=== PATIENT | male | born 1940 | race Caucasian/White ===

== ENCOUNTER → 2020-09-28 02:15 | Outpatient (CLI) | payer MEDICARE, SELFPAY ==
[2020-09-28 19:19] LABS: SARS-CoV-2 RNA PCR Negative
== END ==
PROVIDERS: PCP Internal Medicine; Visit Provider Specialist
DX: Z01.812 Encounter for preprocedural laboratory examination (principal); Z20.822 Contact with and (suspected) exposure to COVID-19
CPT/HCPCS: C9803; U0003; U0005

== ENCOUNTER 2020-10-01 16:44 | Day surgery (SDC) | payer MEDICARE, SELFPAY ==
[2020-09-30 15:40] VITALS: BMI 26.6
[2020-10-01] VITALS (11 sets, daily range): BP systolic 100–135; BP diastolic 51–108; PULSE 45–60; RESP 8–20; TEMP 36.2–36.6; O2SAT 97–100; BMI 21.4
--- NOTE | ~2020-10-01 | XR_ITS ---
EXAMINATION: XR chest 2V DATE: 10/02/2020 07:29 INDICATION: Weakness TECHNIQUE: frontal and lateral views of the chest were obtained. COMPARISON: Chest radiograph dated 10/01/2020 FINDINGS: The lungs remain clear with no focal airspace opacities, pulmonary edema, pleural effusion or pneumot horax. The cardiomediastinal silhouette is normal. Median sternotomy wires and mediastinal surgical c lips are seen, likely from prior coronary artery bypass grafting. Skin hernan along side a likely re cently placed right pectoral cardiac pacemaker with the tip just from the 2 leads projecting over the expected locations of the right atrium and right ventricle. Left rotator cuff arthropathy. IMPRESSION: 1. No acute cardiopulmonary disease. Reviewed, dictated and finalized at location A.
--- NOTE | ~2020-10-01 | XR_ITS ---
EXAMINATION: XR chest 1V portable DATE: 10/01/2020 15:49 INDICATION: Pacer placement. TECHNIQUE: A single frontal view of the chest was obtained. COMPARISON: None. FINDINGS: A calcified left lung nodule is consistent with old granulomatous disease. No pleural effus ion or pneumothorax. The heart size is normal. Median sternotomy wires and mediastinal surgical clips are seen, likely from prior coronary artery bypass grafting. There is a right chest wall pacer with leads in the right atrium and right ventricle. IMPRESSION: 1. No acute cardiopulmonary disease. Reviewed, dictated and finalized at location B.
[2020-10-01 12:17] LABS: Basophils Percent Auto 0.3 % (0.2-1.2); Eosinophils Absolute Auto 0.1 K/mm3 (0-0.3); Eosinophils Percent Auto 1.7 % (0-4.4); Hematocrit 36.1 % (42.0-52.0); Hemoglobin 11.1 g/dL (14.0-18.0); Immature Granulocyte Absolute 0.02 K/mm3 (0.00-0.031); Immature Granulocyte Percent A 0.3 % (0-0.5); Lymphocytes Absolute Auto 1.07 K/mm3 (0.9-3.2); Lymphocytes Percent Auto 14.8 % (18.3-44.2); Mean Corpuscular HGB Conc 30.7 g/dl (32-36); Mean Corpuscular Hemoglobin 24.3 pg (26-34); Monocytes Absolute Auto 0.6 K/mm3 (0.1-0.6); Monocytes Percent Auto 8.2 % (2.6-8.5); Neutrophils Absolute Auto 5.4 K/mm3 (1.3-6.7); Neutrophils Percent Auto 74.7 % (45.5-73.1); Platelet Count Result 333 k/mm3 (150-375); Red Blood Count 4.57 M/mm3 (4.6-6.20); Red Cell Distribution Width 16.7 % (11.5-14.5); White Blood Count 7.2 K/mm3 (4.5-10.0)
[2020-10-01 12:26] LABS: Anion Gap 6 mmol/L (8-16); Blood Urea Nitrogen 22 mg/dL (9-20); Calcium 9.4 mg/dL (8.4-10.2); Carbon Dioxide 29 mmol/L (22-30); Chloride 102 mmol/L (98-107); Estimated CRCL calculation 42 ml/min; Estimated Glomerular Filt Rate 53; Glucose 93 mg/dL (75-110); Potassium 4.1 mmol/L (3.4-5.0); Sodium 137 mmol/L (137-145)
--- NOTE | 2020-10-01 13:09 | SUR.PREOP ---
Patient arrives via wheelchair to [facility] room 7, accompanied by his brother, Félix at bedside. Patient alert and oriented x 4 and denies pain. Patient prepped for pacemaker insertion today, with possible extraction of loop recorder. PIV inserted and labs obtained. Consent signed. VS obtained. Skin wiped with CHG cloths. Patient updated on plan of care and verbalizes understanding. Will continue to monitor.
--- NOTE | 2020-10-01 13:12 | SUR.PREOP ---
Dr. Conley notified of need for updated H & P prior to today's planned procedure for pacemaker insertion. Dr. Conley states he will update H & P.
--- NOTE | 2020-10-01 13:52 | PM.IMHP ---
H&P: HPI History of Present Illness Date/Time: 10/01/20 13:52 80 YEARS OLD GENTLEMAN WITH HISTORY OF CORONARY DISEASE STATUS POST CORONARY BYPASS SURGERY, and proximal atrial fibrillation was seen because of episodes of dizziness and syncope, he had loop recorder implanted few months ago which showed multiple episodes of pauses the longest is 4.2 seconds. He be admitted to the hospital for elective insertion of pacemaker Chief Complaint: Dizziness PMFSH Social History Social History Smoking status: Former smoker Tobacco type: cigarettes Additional smoking assessment comments: smoked 50 years ago Alcohol intake: never Substance use: never Substance use type: does not use Living arrangements: alone Gender identity (if verbalized by the patient): Male Spiritual care concerns: No Meds Home Medications and Allergies Home Medications Medication Instructions Recorded Confirmed Type allopurinol 100 mg PO DAILY 09/30/20 10/01/20 History amiodarone 100 mg PO DAILY 09/30/20 10/01/20 History apixaban [Eliquis] 5 mg PO BID 09/30/20 10/01/20 History aspirin [Adult Low Dose Aspirin] 81 mg PO DAILY 09/30/20 10/01/20 History glimepiride 1 mg PO DAILY 09/30/20 10/01/20 History lisinopril-hydrochlorothiazide 1 tablet PO DAILY 09/30/20 10/01/20 History magnesium 200 mg PO DAILY 09/30/20 10/01/20 History metformin 100 mg PO BID 09/30/20 10/01/20 History omega 6-xfe-nlq-fish oil [Fish Oil] 1 cap PO BID 09/30/20 10/01/20 History pantoprazole 40 mg PO QAM 09/30/20 10/01/20 History rosuvastatin 20 mg PO DAILY 09/30/20 10/01/20 History vitamin B complex [B 1 tablet PO DAILY 10/01/20 10/01/20 History Complex-Vitamin B12] Allergies Allergy/AdvReac Type Severity Reaction Status Date / Time No Known Allergies Allergy Verified 10/01/20 12:29 Vital Signs Vital Signs - 24 hr 10/01/20 12:25 Temperature 36.4 C L Pulse Rate 45 L Respiratory Rate 15 Blood Pressure 115/57 L Pulse Oximetry 98 Exam Narrative: Exam Narrative: Awake alert oriented x3 not in acute distress Neck is supple no obvious JVD, no carotid bruit Chest: Good air entry bilaterally, lungs are clear to auscultation and percussion bilaterally Cardiovascular: Regular rate and rhythm, 2/6 systolic murmur noted left sternal border Abdomen: Soft nontender bowel sounds positive Extremities: No edema has good pulses distally bilaterally H&P: Results Labs Labs: Short CBC 10/01/20 Range/Units 12:09 WBC 7.2 (4.5-10.0) K/mm3 Hgb 11.1 L (14.0-18.0) g/dL Hct 36.1 L (42.0-52.0) % Plt Count 333 (150-375) k/mm3 BMP 10/01/20 12:09 Sodium 137 Potassium 4.1 Chloride 102 Carbon Dioxide 29 BUN 22 H Creatinine 1.30 Glucose 93 Calcium 9.4 Assessment and Plan Assessment and plan (1) Sick sinus syndrome: Code(s): I49.5 - Sick sinus syndrome Status: Acute Assessment and Plan: With history of pause on the monitor, with occasional episodes of dizziness and syncope, he would need permanent pacemaker (2) Paroxysmal atrial fibrillation: Code(s): I48.0 - Paroxysmal atrial fibrillation Status: Acute (3) Coronary artery disease: Code(s): I25.10 - Atherosclerotic heart disease of [place] coronary artery without angina pectoris Status: Acute
--- NOTE | 2020-10-01 13:55 | WPDMODSED ---
Moderate Sedation Note-Pt Data Patient Data Allergies Allergy/AdvReac Type Severity Reaction Status Date / Time No Known Allergies Allergy Verified 10/01/20 12:29 Home Medications Medication Instructions Recorded Confirmed Type allopurinol 100 mg PO DAILY 09/30/20 10/01/20 History amiodarone 100 mg PO DAILY 09/30/20 10/01/20 History apixaban [Eliquis] 5 mg PO BID 09/30/20 10/01/20 History aspirin [Adult Low Dose Aspirin] 81 mg PO DAILY 09/30/20 10/01/20 History glimepiride 1 mg PO DAILY 09/30/20 10/01/20 History lisinopril-hydrochlorothiazide 1 tablet PO DAILY 09/30/20 10/01/20 History magnesium 200 mg PO DAILY 09/30/20 10/01/20 History metformin 100 mg PO BID 09/30/20 10/01/20 History omega 6-alq-mtj-fish oil [Fish Oil] 1 cap PO BID 09/30/20 10/01/20 History pantoprazole 40 mg PO QAM 09/30/20 10/01/20 History rosuvastatin 20 mg PO DAILY 09/30/20 10/01/20 History vitamin B complex [B 1 tablet PO DAILY 10/01/20 10/01/20 History Complex-Vitamin B12] Current Medications: Active Medications Cefazolin Sodium (Cefazolin Sodium 1 Gm Vial) 1 gm IV PUSH ONCE ONE Stop: 10/01/20 13:51 Sedation/Anesthesia: No previous sedation/anesthesia problems (including family history). PMFSH Social History Social History Smoking status: Former smoker Tobacco type: cigarettes Additional smoking assessment comments: smoked 50 years ago Alcohol intake: never Substance use: never Substance use type: does not use Living arrangements: alone Gender identity (if verbalized by the patient): Male Spiritual care concerns: No Mod Sed Physical Exam Physical Exam Pre Procedural Exam: Normal: Heart Rate (Bradycardia noted) and Heart Rhythm (Slow and irregular) Hours since solid foods: 8 Hours since liquid intake: 8 Internal Medicine - PN: Obj Da Vital Signs Vital Signs: Vital Signs - 24 hr 10/01/20 12:25 Temperature 36.4 C L Pulse Rate 45 L Respiratory Rate 15 Blood Pressure 115/57 L Pulse Oximetry 98 Meds/Results Medications: Active Medications Generic Name Dose Route Start Last Admin Trade Name Freq PRN Reason Stop Dose Admin Cefazolin Sodium 1 gm 10/01/20 13:50 Cefazolin Sodium 1 Gm Vial IV PUSH 10/01/20 13:51 ONCE ONE Labs CBC & Chem 7: 10/01/20 12:09 10/01/20 12:09 Labs: Laboratory Results - last 24 hr 10/01/20 10/01/20 10/01/20 12:09 12:09 12:09 WBC 7.2 RBC 4.57 L Hgb 11.1 L Hct 36.1 L MCV 79.0 L MCH 24.3 L MCHC 30.7 L RDW 16.7 H Plt Count 333 MPV 9.0 Immature Gran % (Auto) 0.3 Neut % (Auto) 74.7 H Lymph % (Auto) 14.8 L [place] % (Auto) 8.2 Eos % (Auto) 1.7 Baso % (Auto) 0.3 Lymph # (Auto) 1.07 [place] # (Auto) 0.6 Eos # (Auto) 0.1 Baso # (Auto) 0.0 Abs Immat Gran (auto) 0.02 Absolute Neuts (auto) 5.4 Absolute Nucleated RBC 0.0 Nucleated RBC % 0.0 PT 14.0 INR 1.0 Sodium 137 Potassium 4.1 Chloride 102 Carbon Dioxide 29 Anion Gap 6 L BUN 22 H Creatinine 1.30 Estim Creat Clear Calc 42 Estimated GFR 53 L Glucose 93 Calcium 9.4 ASA Classification/Sedation ASA Classification/Sedation ASA Class: III Emergent: No Risks: Risks, benefits and alternatives explained and patient/family accepted plan for sedation. Patient re-evaluated immediately prior to sedation.
--- NOTE | 2020-10-01 15:23 | WPDCARDPROC ---
Cardiac Cath Procedure Note Date of procedure:: 10/01/20 Performing physician:: Miguel Conley MD PROCEDURE: Dual Chamber Permanent Pacemaker Implantation using fluoroscopy OIL HOUSE ATTENDANT: Miguel Conley M.D. CLINICAL HISTORY: Complete Heart Block, Paroxysmal Atrial fibrillation PROCEDURE: In a post-absoptive state, the patient was brought to the Cardiac Catheterization Laboratory. The left hemithorax was prepped and draped in the usual sterile fashion. The skin was infiltrated with 1% Lidocaine for regional anesthesia. One venipuncture was easily made into the left subclavian vein using a micro puncture kit. The guidewire was positioned in the right atrium while a pacemaker pocket was constructed with sharp and blunt dissection and electrocautery. A 6 F sheath was inserted over the guide wire. A second introducer wire was introduced through the sheath and the sheath was removed while both J wires remained. A 6fr Optiseal introducer was then reinserted over one J wire. The 6 Fl sheath was used to pass the ventricular t 53 lead to the right ventricle. Good pacing and sensing parameters were obtained. A second 6fr was introduced over the second J wire. A Medtronic JT 45 atrial lead was advanced through the sheath a positioned in the atrium. Good pacing and sensing parameters were obtained. Both 6 Fr sheaths were split. The leads were sutured in place with 2-0 Silk. The leads were then attached to a dual chamber pulse generator upon which the atrial threshold was noted to be high at 5V at 0.4ms while the ventricular pacing measurements remained unchanged. The atrial lead was removed from the pacemaker and a stylet was inserted to reposition the lead. Once again, appropriate pacing and sensing were obtained and the lead was reinserted into the pacemaker. The wound was then irrigated with Ancef solution and pacemaker placed in pocket following which, subcutaneous tissues were closed with 2.0 Vicryl and hernan for skin. Ventricular Lead:[facility] model # Solia T-53, serial # [id number] Threshold: 0.375 Volts @ 0.4ms Impedance: 702 Ohms R Wave sensin.5 mV Atrial Lead: Biotronik JT 45, serial # [id number] Threshold: n/a Impedance: 526 Ohms P flutter Wave sensin.8 mV Pulse Generator: Aunalyticsora 8 DR-T Mode: DDIR Programmed Rate: 60 Upper Tracking Rate: 110 Upper Sensor Rate: 110 Atrial Ventricular Output Amplitude: 3.5 Volts 3.5 Volts Pulse Duration: 0.4 ms 0.4 ms Sensitivity: 0.3 mV 1.2 mV Aquacel Ag was applied to the pacemaker incision site along with a pressure dressing. The patient tolerated the procedure very well, experienced no difficulties, and returned to his room in good condition. At end of the procedure loop recorder was removed, by applying lidocaine anesthesia to the area, and the area was dissected with 11 blade, and subsequently the loop recorder was retrieved, the area was closed with applying hernan. 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
--- NOTE | 2020-10-01 15:38 | ECG_ITS ---
Measurements Intervals [place] Rate: 60 P: [place]: 0 QRS: -72 QRSD: 189 T: 79 QT: 521 QTc: 521 Interpretive Statements ELECTRONIC VENTRICULAR PACEMAKER UNDERLYING ATRIAL FLUTTER/TACHYCARDIA NO FURTHER INTERPRETATION IS POSSIBLE ABNORMAL ECG Electronically Signed On 10-01-2020 16:24:59 CDT by Watson [place] D.O.
--- NOTE | 2020-10-01 17:05 | PC.NURSE ---
Pressure dressing applied by SANTIAGO and Arturo LIN
--- NOTE | 2020-10-01 17:37 | PC.NURSE ---
RN gave report to Radha HENDERSON and Kelly HENDERSON. Patient transferred to room and set up with dinner tray.
--- NOTE | 2020-10-01 17:44 | ADMGEN ---
This patient, Khurram Hays, was admitted to Medical Room 252-01. Patient/family oriented to hospital policies and general routines including ID bracelet, bed and alarms, visiting hours, pain management, procedures, bathroom and other care routines, personal items, smoking policy, room service/diet, and visiting hours. Information on how to activate the Rapid Response Team has been discussed. Patient/Family are encouraged to report perceived risks to care and to ask questions if they do not understand what they are told or what they should do.
[2020-10-01] MEDS: SODIUM CHLORIDE 0.9% IV 1,000 ML 50 ML IV CONT (17:59)
[2020-10-01 20:17] LABS: Glucose Point of Care 116 (65-105)
[2020-10-01] MEDS: metFORMIN HCL 500 MG TABLET 1000 MG PO (20:30)
[2020-10-01] MEDS: ROSUVASTATIN 10 MG TABLET 20 MG PO (20:31)
[2020-10-02 00:13] VITALS: PULSE 60
[2020-10-02 01:23] VITALS: BP 122/49; PULSE 59; RESP 20; TEMP 36.8; O2SAT 99
[2020-10-02] MEDS: ACETAMINOPHEN/ASPIRIN/CAFFEINE 250-250-65 MG TABLET 1 TABLET PO (03:52)
[2020-10-02 04:00] VITALS: PULSE 60
[2020-10-02 06:00] VITALS: BP 121/65; PULSE 61; RESP 21; TEMP 36.2; O2SAT 100
--- NOTE | 2020-10-02 07:55 | PM.DS ---
DS: Admitting Diagnosis Admitting Diagnosis Admitting Diagnosis: Sick sinus syndrome, syncope DS: Discharge Diagnosis Discharge Diagnosis (1) Sick sinus syndrome: Code(s): I49.5 - Sick sinus syndrome Status: Acute Assessment and Plan: With history of pause on the monitor, with occasional episodes of dizziness and syncope, he would need permanent pacemaker (2) Paroxysmal atrial fibrillation: Code(s): I48.0 - Paroxysmal atrial fibrillation Status: Acute (3) Coronary artery disease: Code(s): I25.10 - Atherosclerotic heart disease of [place] coronary artery without angina pectoris Status: Acute DS: Summary Hospital Course Hospital Course: He underwent permanent pacemaker placement, dual-chamber, successful, chest x-ray is negative, pacer seems to be working appropriately. He will be discharged home to have a follow-up in 1 week for hernan removal Time Spent with Patient Time attestation: Total time spent providing and/or coordinating discharge services: Exam Narrative: Exam Narrative: Awake alert oriented x3 not in acute distress Neck is supple no obvious JVD, no carotid bruit Chest: Good air entry bilaterally, lungs are clear to auscultation and percussion bilaterally Cardiovascular: Regular rate and rhythm, 2/6 systolic murmur noted left sternal border Abdomen: Soft nontender bowel sounds positive Extremities: No edema has good pulses distally bilaterally DS: Data Data Completed and Pending Labs on day of discharge: Labs from last 24 hours 10/01/20 10/01/20 10/01/20 20:10 12:09 12:09 WBC RBC Hgb Hct MCV MCH MCHC RDW Plt Count MPV Immature Gran % (Auto) Neut % (Auto) Lymph % (Auto) [place] % (Auto) Eos % (Auto) Baso % (Auto) Lymph # (Auto) [place] # (Auto) Eos # (Auto) Baso # (Auto) Abs Immat Gran (auto) Absolute Neuts (auto) Absolute Nucleated RBC Nucleated RBC % PT 14.0 INR 1.0 Sodium 137 Potassium 4.1 Chloride 102 Carbon Dioxide 29 Anion Gap 6 L BUN 22 H Creatinine 1.30 Estim Creat Clear Calc 42 Estimated GFR 53 L Glucose 93 POC Capillary Glucose 116 H Calcium 9.4 10/01/20 12:09 WBC 7.2 RBC 4.57 L Hgb 11.1 L Hct 36.1 L MCV 79.0 L MCH 24.3 L MCHC 30.7 L RDW 16.7 H Plt Count 333 MPV 9.0 Immature Gran % (Auto) 0.3 Neut % (Auto) 74.7 H Lymph % (Auto) 14.8 L [place] % (Auto) 8.2 Eos % (Auto) 1.7 Baso % (Auto) 0.3 Lymph # (Auto) 1.07 [place] # (Auto) 0.6 Eos # (Auto) 0.1 Baso # (Auto) 0.0 Abs Immat Gran (auto) 0.02 Absolute Neuts (auto) 5.4 Absolute Nucleated RBC 0.0 Nucleated RBC % 0.0 PT INR Sodium Potassium Chloride Carbon Dioxide Anion Gap BUN Creatinine Estim Creat Clear Calc Estimated GFR Glucose POC Capillary Glucose Calcium Discharge Plan Discharge Patient Disposition: Home, Self-Care Patient Instructions: Antibiotic Form Follow-up/Referrals: Miguel Conley MD [Physician] - Discharge Medications: No Action allopurinol 100 mg Tablet 100 mg PO DAILY RF: 0 glimepiride 1 mg Tablet 1 mg PO DAILY RF: 0 metformin 1,000 mg Tablet 1,000 mg PO BID RF: 0 Adult Low Dose Aspirin 81 mg Tablet 81 mg PO DAILY RF: 0 lisinopril-hydrochlorothiazide 10-12.5 mg Tablet 1 tablet PO DAILY RF: 0 magnesium 200 mg Tablet 200 mg PO DAILY RF: 0 rosuvastatin 10 mg Tablet 20 mg PO DAILY RF: 0 amiodarone 100 mg Tablet 100 mg PO DAILY RF: 0 Fish Oil 100-160-1,000 mg Capsule 1 cap PO BID RF: 0 Eliquis 5 mg Tablet 5 mg PO BID RF: 0 vitamin B complex [B Complex-Vitamin B12] Tablet 1 tablet PO DAILY RF: 0 pantoprazole 40 mg tablet,delayed release (DR/EC) 40 mg PO DAILY RF: 0
[2020-10-02 09:04] VITALS: PULSE 60
[2020-10-02] MEDS: allopurinoL 100 MG TABLET PO (09:04)
[2020-10-02] MEDS: AMIODARONE HCL 100 MG TABLET PO (09:04)
[2020-10-02] MEDS: APIXABAN 5 MG TABLET PO (09:06)
[2020-10-02] MEDS: ASPIRIN 81 MG CHEWABLE TABLET PO (09:06)
[2020-10-02] MEDS: GLIMEPIRIDE 1 MG TABLET PO (09:07)
[2020-10-02] MEDS: lisinopriL 10 MG TABLET PO (09:07)
[2020-10-02] MEDS: metFORMIN HCL 500 MG TABLET 1000 MG PO (09:07)
[2020-10-02] MEDS: hydroCHLOROthiazide 12.5 MG CAPSULE PO (09:07)
[2020-10-02] MEDS: MAGNESIUM OXIDE 200 MG TABLET PO (09:07)
[2020-10-02] MEDS: VITAMIN B COMPLEX CAPSULE 1 CAP PO (09:07)
[2020-10-02] MEDS: PANTOPRAZOLE 40 MG TABLET PO (09:07)
[2020-10-02] MEDS: OMEGA 3 POLYUNSAT FATTY ACIDS 1 GM CAP PO (09:07)
[2020-10-02 09:29] LABS: Glucose Point of Care 96 (65-105)
--- NOTE | 2020-10-02 10:30 | PC.NURSE ---
Patient given Cephalexin 500 mg po - medication did not capture the scan and not documented. Patient instructed to take next dose at 2100 this evening.
== END 2020-10-02 10:45 | disposition home or self-care (01) ==
LOC: ANH2MED 20:00 → ANHCATHLAB 10-14 11:02
PROVIDERS: PCP Internal Medicine; Visit Provider Specialist
PROC: 0JH606Z Insertion of Pacemaker, Dual Chamber into Chest Subcutaneous Tissue and Fascia, Open Approach (ICD-10-PCS; CPT 33208; principal; 2020-10-01 13:30)
DX: I49.5 Sick sinus syndrome (principal); I44.2 Atrioventricular block, complete; I48.0 Paroxysmal atrial fibrillation; I25.10 Atherosclerotic heart disease of native coronary artery without angina pectoris; Z87.891 Personal history of nicotine dependence; Z79.82 Long term (current) use of aspirin; Z20.822 Contact with and (suspected) exposure to COVID-19; Z79.01 Long term (current) use of anticoagulants; Z79.84 Long term (current) use of oral hypoglycemic drugs; Z95.1 Presence of aortocoronary bypass graft
CPT/HCPCS: 33208; 36415; 71045; 71046; 80048; 82948; 85025; 85610; 93005; 99199; A9270; C1779; C1785; C9803; J0690; J2250; J3010; J7030; J7040; U0003; U0005